=== PATIENT | female | born 1995 | race Caucasian/White ===

== ENCOUNTER 2019-05-13 01:15 | Emergency (ER) | payer MEDICARE, OTHER ==
[~2019-05-13] VITALS: Ht 170.2 cm; Wt 130.2 kg
[2019-05-13] MEDS ORDERED: SODIUM CHLORIDE 0.9% 1000ML 1,000 ML IV STA (01:25)
[2019-05-13] MEDS ORDERED: ONDANSETRON HCL INJ 2MG/ML 2ML 2 MG/ML VIAL IV ONE (01:30)
[2019-05-13] MEDS ORDERED: FAMOTIDINE 20 MG/2 ML VIAL IV ONE (01:30)
--- NOTE | 2019-05-13 03:30 | Diagnostic Imaging Report ---
EXAM: First Trimester Obstetric Pelvic Ultrasound INDICATION: ^[id number] COMPARISON: None TECHNIQUE: Grayscale transverse and sagittal transabdominal and transvaginal images were obtained of the pelvis. Transvaginal imaging was medically necessary to better evaluate the endometrium, adnexa, and fetus. CLINICAL HISTORY: Limited study due to bowel gas and body habitus. 23 year old A0 Last menstrual period: 03/24/2019 Clinical gestational age: 7 weeks and 0 days FINDINGS: Uterus: Orientation: Normal Size: 8.2 x 5.4 x 6.3 cm, enlarged Mass: None Cervix: Normal Small saclike structure within endometrium measuring 0.7 cm. No yolk sac or pole visualized. Ovaries are not visualized. Cul-de-sac: No free fluid IMPRESSION: Endometrial saclike structure without pole or yolk sac to prove intrauterine . Differentials remain early , ectopic , and miscarriage. Early is favored. Recommend correlation with serial beta hCG and short-term follow-up ultrasound. Signed by: Dr. Severino Lopez MD on 05/13/2019 3:26 AM
== END 2019-05-13 03:20 | disposition home or self-care (01) ==
LOC: FSED 01:15
DX: Z32.01 Encounter for pregnancy test, result positive (principal); K52.9 Noninfective gastroenteritis and colitis, unspecified; K29.00 Acute gastritis without bleeding
CPT/HCPCS: 36415; 76801; 80053; 84702; 85025; 86900; 99284; J7030